=== PATIENT | male | born 1970 | race Caucasian/White ===

== ENCOUNTER 2024-05-23 15:15 | Emergency (ER) | payer OTHER ==
[~2024-05-23] VITALS: Ht 167.6 cm; Wt 78.9 kg
[2024-05-23 15:32] VITALS: BP 111/75; PULSE 87; RESP 20; TEMP 98.6; O2SAT 99
[2024-05-23] MEDS: KETOROLAC 30 MG/ML VIAL IM ONE (16:15)
[2024-05-23] MEDS ORDERED: IBUP-2213 PO (16:50)
== END 2024-05-23 17:00 | disposition home or self-care (01) ==
LOC: MED 15:15
DX: M25.531 Pain in right wrist (principal)
CPT/HCPCS: 29130; 73110; 73130; 96372; 99284; J1885